=== PATIENT | female | born 1930 | race Caucasian/White ===

== ENCOUNTER 2017-08-19 10:38 | Emergency (ER) | payer OTHER, MEDICARE ==
[~2017-08-19] VITALS: Ht 167.6 cm; Wt 86.2 kg
[~2017-08-19 10:38] MED LIST: AUGMENTIN 875875 MG PO; CIPROFLOXACIN250 M2 PO; DESITIN DIAPER28 GM TOP; FUROSEMIDE40 MG PO; KEFLEX500 M1 PO; LASIX20 M1 PO; LISINOPRIL2.5 MG PO; MIRALAX119 GM PO; MIRTAZAPINE7.5 M1 PO; PAIN RELIEVER650 MG PO; ROZEREM8 MG PO; SENNA PLUS TAB1 EACH PO; SIMVASTATIN20 M2 PO; TRAMADOL HCL50 M1 PO; TYLENOL TAB 32325 MG PO; VESICARE10 MG PO; VITAMIN A & D56.7 GM TOP; VITAMIN D1000 IU PO; VOLTAREN GEL1% TOP
[2017-08-19 12:33] LABS: ABSOLUTE BASOPHIL COUNT 0 /CUMM (0.0-0.2)
[2017-08-19 12:40] LABS: ABSOLUTE EOSINOPHIL COUNT 0.1 /CUMM (0.0-0.7); ABSOLUTE GRANULOCYTE CT 5.1 /CUMM (1.4-6.5); ABSOLUTE MONOCYTE COUNT 0.5 /CUMM (0.10-0.60); BASOPHIL % 0.3 % (0.0-2.0); EOSINOPHIL % 1.9 % (0-5); GRANULOCYTE % 65.3 % (42.2-75.2); HEMATOCRIT 32.9 % (37-47); MEAN CORPUSCULAR HGB 28.8 PG (27.0-31.0); MEAN CORPUSCULAR HGB CONC 34.1 G/DL (33.0-37.0); MEAN CORPUSCULAR VOLUME 84.4 FL (81.0-99.0); MEAN PLATELET VOLUME 7.4 FL (7.4-10.4); PLATELET COUNT 583 /CUMM (130-400); RBC DISTRIBUTION WIDTH 13.7 % (11.5-14.5); WHITE BLOOD CELL COUNT 7.9 /CUMM (4.8-10.8)
[2017-08-19] MEDS ORDERED: ROZEREM8 M1 PO (12:58)
[2017-08-19] MEDS ORDERED: VITAMIN D31000 UNI2 PO (12:58)
--- NOTE | 2017-08-19 13:55 | ED GI/GU/ABDOMINAL COMPLAINT ---
History of Present Illness General Chief Complaint: Female Urogenital Problems Stated Complaint: NO RELIEF OF UTI SYMPTOMS Source: patient Exam Limitations: no limitations Vital Signs & Intake/Output Vital Signs & Intake/Output Vital Signs Date Time Temp Pulse Resp B/P B/P Pulse O2 O2 Flow FiO2 Mean Ox Delivery Rate 08/19 1423 97.0 100 20 130/70 96 Room Air 08/19 1125 97.0 88 18 124/72 96 Room Air Allergies Coded Allergies: NO KNOWN ALLERGIES (11/23/11) Reconcile Medications Acetaminophen (Pain Reliever) 650 MG TABLET.ER 1 TAB PO Q4-6 PRN PAIN Cholecalciferol (Vitamin D3) 1,000 UNIT TABLET 1 TAB PO DAILY VITAMIN SUPPORT (Reported) Cod Liver Oil/Zinc Oxide (Desitin Diaper Rash 40% Paste) 28 GM PASTE..G. 1 LARA TOP BID skin care Mirtazapine 7.5 MG TABLET 1 TAB PO QPM SLEEP/MENTAL HEALTH (Reported) Nitrofurantoin Monohyd/M-Cryst (Macrobid 100 MG Capsule) 100 MG CAPSULE 1 CAP PO BID UTI with food Polyethylene Glycol 3350 (Miralax) 119 GM POWDER 17 GM PO DAILY PRN if constipation > 2 days Ramelteon (Rozerem) 8 MG TABLET 1 TAB PO QPM SLEEP (Reported) Sennosides/Docusate Sodium (Senna Plus Tablet) 1 EACH TABLET 1 TAB PO BID PRN constipation > 2 days Simvastatin (Simvastatin*) 20 MG TABLET 1 TAB PO DAILY CHOLESTEROL (Reported) Solifenacin Succinate (Vesicare) 10 MG TABLET 1 TAB PO DAILY BLADDER ( Reported) Vitamin A & D (Vitamin A & D Ointment) 56.7 GM OINT...G. 1 LARA TOP BID skin care Triage Note: PT BROUGHT TO ED BY DAUGHTER FOR CONTINUED CONFUSION S/P TREATMENT FOR UTI. "I SEE WORMS WHEN I SCRATCH MY SKIN" FINISHED ABX 2-3 DAYS AGO. VSS. AFEBRILE Triage Nurses Notes Reviewed? yes ? n Is pt currently ? No Onset: Abrupt Duration: day(s):, continues in ED, getting worse, waxing and waning Timing: recent history HPI: Patient presents for evaluation of hallucinations consisting of worms crawling on her skin. She was seen in the emergency department recently and treated for urinary tract infection with an unknown antibiotic. She has a history of hallucinations with previous urinary tract infections. Patient currently denies fever or cold symptoms or UTI symptoms. Past History Travel History Traveled to [place] past 21 day No Medical History Any Pertinent Medical History? 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 No Review of Systems Review of Systems Constitutional: Reports: no symptoms. EENTM: Reports: no symptoms. Respiratory: Reports: no symptoms. Cardiovascular: Reports: no symptoms. GI: Reports: no symptoms. Genitourinary: Reports: no symptoms. Musculoskeletal: Reports: no symptoms. Skin: Reports: no symptoms. Neurological/Psychological: Reports: see HPI. Hematologic/Endocrine: Reports: no symptoms. Immunologic/Allergic: Reports: no symptoms. All Other Systems: Reviewed and Negative Physical Exam Physical Exam Gastrointestinal: see below Comments: Gen.: Well-nourished, well-developed, no acute respiratory distress. Head: Normocephalic, atraumatic. Eyes: Normal inspection bilaterally Ears: Normal inspection bilaterally Nose: Normal inspection Throat/mouth : Moist mucosa Neck: Supple, full range of motion, no goiter Heart: Regular rate and rhythm, no murmurs rubs or gallops Lungs: Clear to auscultation bilaterally with normal air entry Chest: Nontender Back: Normal range of motion Abdomen: Soft, nontender, nondistended, normal bowel sounds Extremities: Normal range of motion grossly, equal radial pulses, no cyanosis clubbing or edema Neurologic: Cranial nerves grossly intact, speech is clear Skin: warm and dry Psychiatric: Calm, cooperative, no apparent delusions or hallucinations Core Measures ACS in differential dx? No Sepsis Present: No Sepsis Focused Exam Completed? No Progress Differential Diagnosis: kidney stone, UTI/pyelo, anemia,dehydration,electrolyte abnormality Plan of Care: Orders Procedure Date/time Status URINALYSIS 08/19 1156 Complete COMPREHENSIVE METABOLIC PANEL 08/19 1156 Complete CBC WITHOUT DIFFERENTIAL 08/19 1156 Complete Laboratory Tests 08/19/17 1420: Urinalysis LIGHT H, Urine Color SERGO, Urine Clarity HAZY H, Urine pH 6.5, Ur Specific [place] 1.010, Urine Protein NEG, Urine Ketones NEG, Urine Nitrite NEG, Urine Bilirubin NEG, Urine Urobilinogen 0.2, Ur Leukocyte Esterase MOD H, Ur Microscopic SEDIMENT EXAMINED, Urine RBC 3-5, Urine WBC 15-25 H, Ur Epithelial Cells FEW, Urine Bacteria MANY H, Urine Mucus RARE, Urine Hemoglobin SMALL H, Urine Glucose NEG 08/19/17 1224: Anion Gap 15, Estimated GFR 53 L, BUN/Creatinine Ratio 31.0 H, Glucose 99, Calcium 9.4, Total Bilirubin 0.4, AST 21, ALT 34, Alkaline Phosphatase 95, Total Protein 7.4, Albumin 4.0, Globulin 3.4, Albumin/Globulin Ratio 1.2, CBC w Diff NO MAN DIFF REQ, RBC 3.90 L, MCV 84.4, MCH 28.8, RDW 13.7, MPV 7.4, Gran % 65.3 , Lymphocytes % 25.5, Monocytes % 7.0, Eosinophils % 1.9, Basophils % 0.3, Absolute Granulocytes 5.1, Absolute Lymphocytes 2.0, Absolute Monocytes 0.5, Absolute Eosinophils 0.1, Absolute Basophils 0, PUBS MCHC 34.1 Initial ED EKG: none Comments: 08/19/2017 3:23:00 PM I had a discussion with Kedar's daughter here in the emergency department prior to the sending of the urine specimen from the emergency department. Although Lillie has been complaining of what appear to be tactile hallucinations her daughter felt that given the evaluation recently in the emergency department and only a urinalysis will need to be checked. I have just updated her on the urinalysis test results and I will treat her with a different class of antibiotic. The patient and daughter feel comfortable with this approach. Departure Departure Disposition: HOME OR SELF CARE Condition: Stable Clinical Impression Primary Impression: UTI (urinary tract infection) Qualifiers: Urinary tract infection type: acute cystitis Hematuria presence: without hematuria Qualified Code: N30.00 - Acute cystitis without hematuria Referrals: Yessica Gilmore MD (PCP/Family) Additional Instructions: Nitrofurantoin as prescribed for your urinary tract infection. Maintained a good fluid intake. Follow-up with your primary care physician for reevaluation next week. Return if any concerns or sudden worsening. Please note that there might be incidental findings in your evaluation that are unrelated to the current emergency department visit. Please notify your primary care doctor about this emergency department visit in order to obtain and review all of the testing performed so that these incidental findings can be monitored as needed. If you had an x-ray performed, please understand that some fractures may not be seen on the initial set of x-rays. If your symptoms persist you might need a repeat set of x-rays to check for such a fracture. If you had a laceration evaluated, please understand that foreign bodies such as glass or wood may not be visible to the naked eye or on plain x-rays. If the wound becomes red, swollen, increasingly more painful or if there is any drainage from the wound, please have it reevaluated by a physician for the possibility of a retained foreign body. If you're unable to follow up as outlined in the discharge instructions please return to the emergency department. Thank you for choosing the [facility] Emergency Department for your care. It was a pleasure to serve you today. Danis Mallory M.D. [facility] Departure Forms: Customer Survey General Discharge Information Prescriptions: Current Visit Scripts Nitrofurantoin Monohyd/M-Cryst (Macrobid 100 MG Capsule) 1 CAP PO BID #14 CAP with food
[2017-08-19 14:23] VITALS: BP 130/70
[2017-08-19] MEDS ORDERED: MACROBID 100 M100 MG PO (15:25)
== END 2017-08-19 15:28 ==
LOC: ERH 10:38
PROVIDERS: Emergency Medicine
DX: N39.0 Urinary tract infection, site not specified (principal)
CPT/HCPCS: 81001